=== PATIENT | female | born 1970 | race American Indian/Alaskan Native ===

== ENCOUNTER 2018-12-22 19:34 | Emergency (ER) | payer SELFPAY ==
--- NOTE | 2018-12-22 19:44 | Event Note ---
ED Screening Note Date of service: 12/22/18 Time: 19:42 ED Screening Note: 48 y o female presents with cc of right foot pain, hip pain and back pain x 2weeeks denies trauma or injury limpimg gait, right foot painm This initial assessment/diagnostic orders/clinical plan/treatment(s) is/are subject to change based on patients health status, clinical progression and re- assessment by fellow clinical providers in the ED. Further treatment and workup at subsequent clinical providers discretion. Patient/guardian urged not to elope from the ED as their condition may be serious if not clinically assessed and managed. Initial orders include: right foot xr ACC eval
--- NOTE | 2018-12-22 20:55 | XRay Report ---
RIGHT FOOT 3 VIEWS INDICATION / CLINICAL INFORMATION: Right foot pain and swelling starting last night. COMPARISON: None available. FINDINGS: BONES / JOINT(S): No acute fracture or subluxation. There is a small plantar calcaneal spur. SOFT TISSUES: No significant abnormality. ADDITIONAL FINDINGS: None. IMPRESSION: Small plantar calcaneal spur without other significant abnormality. Signer Name: Nilson Malik MD Signed: 12/22/2018 8:50 PM Workstation Name: [id number]
[2018-12-23] MEDS ORDERED: DELTASONE PO ONE (02:16)
[2018-12-23] MEDS ORDERED: TYLENOL #3 PO ONE (02:16)
[2018-12-23] MEDS ORDERED: IBUPROFEN PO ONE (02:16)
--- NOTE | 2018-12-23 02:31 | Emergency Department Report ---
ED Lower Extremity HPI - General Chief Complaint: Extremity Injury, Lower Stated Complaint: LEFT SIDE FOOT SWOLLEN, BLURRY VISION, LEG PAIN Time Seen by Provider: 12/22/18 19:42 Source: patient Mode of arrival: Ambulatory Limitations: No Limitations - History of Present Illness Initial Comments: pt is 48 y/ o AA female who presents with cc of right foot pain,pain x 2weeeks denies trauma or injury, pt hx include arthralgia, ankle fracture, DMII, HTN, states she is out of pain medication pt ambulated into ed [facility] Complaint: hip injury, other (acute on chronic foot and ankle pain ) Onset/Timin -: week(s), unknown (chronic for past 5 yrs) Injury: Foot: Right (right heel and foot pain /) Type of Injury: other ( denies acute injury ) Place: home Severity: moderate Severity scale (0 -10): 5 Improves With: NSAID Worsens With: weight bearing, movement, palpation Associated Symptoms: swelling, able to partially bear weight - Related Data Previous Rx's Medication Instructions Recorded Last Taken Type Ibuprofen [Motrin 800 MG tab] 800 mg PO Q8HR PRN #30 tablet 12/23/18 Unknown Rx Lisinopril [Zestril TAB] 20 mg PO QDAY #30 tablet 12/23/18 Unknown Rx Pen Needle, Diabetic [Insulin Pen 1 each MC TID #90 dis.needle 12/23/18 Unknown Rx Needle] glipiZIDE [Glucotrol] 5 mg PO QDAY #30 tablet 12/23/18 Unknown Rx metFORMIN [Glucophage] 500 mg PO BID #60 tablet 12/23/18 Unknown Rx predniSONE [Deltasone] 40 mg PO QDAY 5 Days #10 tab 12/23/18 Unknown Rx Allergies Allergy/AdvReac Type Severity Reaction Status Date / Time No Known Allergies Allergy Verified 12/22/18 19:38 ED Review of Systems ROS: Stated complaint: LEFT SIDE FOOT SWOLLEN, BLURRY VISION, LEG PAIN Other details as noted in HPI Constitutional: denies: chills, fever Eyes: denies: eye pain, eye discharge, vision change ENT: denies: ear pain, throat pain Respiratory: denies: cough, shortness of breath, wheezing Cardiovascular: denies: chest pain, palpitations Endocrine: no symptoms reported Gastrointestinal: denies: abdominal pain, nausea, diarrhea Genitourinary: denies: urgency, dysuria, discharge Musculoskeletal: as per HPI, arthralgia, myalgia, other (right foot pain ) Skin: denies: rash, lesions Neurological: denies: headache, weakness, paresthesias Psychiatric: denies: anxiety, depression Hematological/Lymphatic: denies: easy bleeding, easy bruising ED Past Medical Hx - Social History Smoking Status: Current Every Day Smoker Substance Use Type: None - Medications Home Medications: Home Medications Medication Instructions Recorded Confirmed Last Taken Type Ibuprofen [Motrin 800 MG tab] 800 mg PO Q8HR PRN #30 tablet 12/23/18 Unknown Rx Lisinopril [Zestril TAB] 20 mg PO QDAY #30 tablet 12/23/18 Unknown Rx Pen Needle, Diabetic [Insulin Pen 1 each MC TID #90 dis.needle 12/23/18 Unknown Rx Needle] glipiZIDE [Glucotrol] 5 mg PO QDAY #30 tablet 12/23/18 Unknown Rx metFORMIN [Glucophage] 500 mg PO BID #60 tablet 12/23/18 Unknown Rx predniSONE [Deltasone] 40 mg PO QDAY 5 Days #10 tab 12/23/18 Unknown Rx ED Physical Exam - General Limitations: No Limitations General appearance: alert, in no apparent distress - Head Head exam: Present: atraumatic, normocephalic - Eye Eye exam: Present: normal appearance, PERRL, EOMI Pupils: Present: normal accommodation - ENT ENT exam: Present: mucous membranes moist - Neck Neck exam: Present: normal inspection, full ROM. Absent: tenderness, lymphadenopathy, thyromegaly - Respiratory Respiratory exam: Present: normal lung sounds bilaterally. Absent: respiratory distress, wheezes, stridor, chest wall tenderness - Cardiovascular Cardiovascular Exam: Present: regular rate, normal rhythm, normal heart sounds. Absent: rubs, gallop - GI/Abdominal GI/Abdominal exam: Present: soft, normal bowel sounds. Absent: distended, tenderness, bruit, hernia - Rectal Rectal exam: Present: deferred - Extremities Exam Extremities exam: Present: full ROM, tenderness (heel tenderness to palpation), normal capillary refill, joint swelling. Absent: pedal edema, calf tenderness - Expanded Lower Extremity Exam Right Foot/Toe exam: Present: full ROM, tenderness, calcaneal tenderness. Absent: swelling, abrasion, laceration, ecchymosis, deformity, crepidus, dislocation, erythema, amputation, puncture wound, foreign body, tenderness at base of 5th metatarsal, nail avulsion, subungual hematoma Neuro vascular tendon exam: Present: no vascular compromise. Absent: pulse deficit, motor deficit, sensory deficit, tendon deficit Gait: Positive: observed and limited by pain - Back Exam Back exam: Present: normal inspection, full ROM. Absent: tenderness, CVA tenderness (R), CVA tenderness (L), rash noted - Neurological Exam Neurological exam: Present: alert, oriented X3, CN II-XII intact, normal gait, reflexes normal - Psychiatric Psychiatric exam: Present: normal affect, normal mood - Skin Skin exam: Present: warm. Absent: dry, intact, normal color ED Course Vital Signs 12/22/18 19:41 Temperature 98.1 F Pulse Rate 105 H Respiratory 18 Rate Blood Pressure 177/107 O2 Sat by Pulse 96 Oximetry ED Lower Extremity MDM - Radiology Data Radiology results: report reviewed, image reviewed Ordering Physician: CHERYL OSHEA Date of Service: 12/22/18 Procedure(s): XR foot 3+V RT Accession Number(s): [id number] cc: CHERYL OSHEA Fluoro Time In Minutes: RIGHT FOOT 3 VIEWS INDICATION / CLINICAL INFORMATION: Right foot pain and swelling starting last night. COMPARISON: None available. FINDINGS: BONES / JOINT(S): No acute fracture or subluxation. There is a small plantar calcaneal spur. SOFT TISSUES: No significant abnormality. ADDITIONAL FINDINGS: None. IMPRESSION: Small plantar calcaneal spur without other significant abnormality. Signer Name: Nilson Malik MD Signed: 12/22/2018 8:50 PM Workstation Name: [id number] Transcribed By: RT Dictated By: Nilson Malik MD Electronically Authenticated By: Nilson Malik MD Signed Date/Time: 12/22/182049 DD/ 48 TD/TT: - Medical Decision Making this chronic foot pain, noted small heel spur plan, ibuprofen, prednisone, post op shoe follow up with podiatry pt verbalized agreement and understanding of discharge plan. Critical care attestation.: If time is entered above; I have spent that time in minutes in the direct care of this critically ill patient, excluding procedure time. ED Disposition Clinical Impression: Chronic toe pain, right foot Heel spur Qualifiers: Laterality: right Qualified Code(s): M77.31 - Calcaneal spur, right foot Disposition: - TO HOME OR SELFCARE Is pt being admited?: No Does the pt Need Aspirin: No Condition: Stable Instructions: Arthralgia (ED), Plantar Fasciitis (ED) Prescriptions: predniSONE [Deltasone] 40 mg PO QDAY 5 Days #10 tab metFORMIN [Glucophage] 500 mg PO BID #60 tablet glipiZIDE [Glucotrol] 5 mg PO QDAY #30 tablet Pen Needle, Diabetic [Insulin Pen Needle] 1 each MC TID #90 dis.needle Ibuprofen [Motrin 800 MG tab] 800 mg PO Q8HR PRN #30 tablet PRN Reason: Pain , Severe (7-10) Lisinopril [Zestril TAB] 20 mg PO QDAY #30 tablet Referrals: [facility] [Outside] - 3-5 Days GUZMAN CONSTANTINO DPM [Staff Physician] - 3-5 Days Forms: Work/School Release Form(ED) Time of Disposition: 02:45
[2018-12-23] MEDS ORDERED: HCTZ PO ONE (03:31)
[2018-12-23] MEDS ORDERED: ZESTRIL PO ONE (03:31)
[2018-12-23] MEDS ORDERED: HCTZ ONE (03:31)
[2018-12-23] MEDS ORDERED: ZESTRIL ONE (03:31)
[2018-12-23 07:24] VITALS: BP 187/118
== END 2018-12-23 03:48 | disposition home or self-care (01) ==
LOC: ED 19:34
DX: M77.31 Calcaneal spur, right foot (principal); M79.674 Pain in right toe(s); G89.29 Other chronic pain; F17.200 Nicotine dependence, unspecified, uncomplicated; Z79.84 Long term (current) use of oral hypoglycemic drugs; Z79.899 Other long term (current) drug therapy
CPT/HCPCS: 73630; 93005; 93010; 99283; J7512

== ENCOUNTER 2020-01-15 13:13 | Emergency (ER) | payer SELFPAY ==
[2020-01-15] MEDS ORDERED: ASPIRIN 325 MG TAB PO ONE (13:24)
--- NOTE | 2020-01-15 13:45 | Emergency Department Report ---
ED General Adult HPI - General Chief complaint: Dyspnea/Respdistress Stated complaint: BP HIGH PUI?: No Time Seen by Provider: 01/15/20 13:30 Source: patient, RN notes reviewed, old records reviewed Mode of arrival: Ambulatory Limitations: No Limitations - History of Present Illness Initial comments: The patient was evaluated in the emergency department for symptoms described in the history of present illness. He/she was evaluated in the context of the global COVID-19 pandemic, which necessitated consideration that the patient might be at risk for infection with the virus that causes COVID-19. Institutional protocols and algorithms that pertain to the evaluation of patients at risk for COVID-19 are in a state of rapid change based on information released by regulatory bodies including the CDC and federal and state organizations. These policies and algorithms were followed during the patient's care in the emergency department. Please note that these policies, procedures and recommendations changed on a rapid basis. Patient is a 49-year-old female. She is not known to myself previously. She states that she is not . 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 She has not taken prescription medication for 8 or 9 months. She reportedly has a history of TIA. She is noncompliant with outpatient medications. She is sent to the emergency room by a local free clinic. The patient complains of multiple things, including bilateral nontraumatic plantar foot pain, bilateral nontraumatic ankle swelling, left arm, left leg numbness, for 2 to 3 days, slurred speech for 2 to 3 days, "tight" pain, "all over", and shortness of breath which is painless. Patient also complains of headache, which is frontal and bitemporal, not sudden or thunderclap in nature, not maximal in intensity, not the worst headache of her life, without binocular blurry vision or loss of vision. -: Gradual, days(s) Location: left, lower extremity Radiation: extremity Quality: aching Consistency: intermittent Improves with: rest Worsens with: movement - Related Data Previous Rx's Medication Instructions Recorded Last Taken Type Ibuprofen [Motrin 800 MG tab] 800 mg PO Q8HR PRN #30 tablet 12/23/18 Unknown Rx Pen Needle, Diabetic [Insulin Pen 1 each MC TID #90 dis.needle 12/23/18 Unknown Rx Needle] predniSONE [Deltasone] 40 mg PO QDAY 5 Days #10 tab 12/23/18 Unknown Rx Aspirin EC [Ecotrin] 81 mg PO QDAY #100 tablet. 01/15/20 Unknown Rx AtorvaSTATin [Lipitor] 20 mg PO QHS #30 tab 01/15/20 Unknown Rx Clopidogrel [Plavix] 75 mg PO QDAY #30 tablet 01/15/20 Unknown Rx Gabapentin 100 mg PO Q8HR #90 capsule 01/15/20 Unknown Rx amLODIPine 10 mg PO DAILY #30 tab 01/15/20 Unknown Rx glipiZIDE [Glucotrol] 5 mg PO BID #30 tablet 01/15/20 Unknown Rx lisinopriL [Zestril TAB] 40 mg PO QDAY #30 tablet 01/15/20 Unknown Rx metFORMIN [Glucophage] 500 mg PO BID #60 tablet 01/15/20 Unknown Rx Allergies Allergy/AdvReac Type Severity Reaction Status Date / Time No Known Allergies Allergy Verified 12/22/18 19:38 ED Review of Systems ROS: Stated complaint: BP HIGH Other details as noted in HPI Constitutional: fever Eyes: denies: eye discharge, vision change ENT: denies: hearing loss Respiratory: shortness of breath. denies: cough Cardiovascular: edema. denies: chest pain Gastrointestinal: denies: abdominal pain Genitourinary: denies: dysuria Musculoskeletal: arthralgia, myalgia Neurological: headache, weakness, numbness, paresthesias Hematological/Lymphatic: denies: easy bleeding ED Past Medical Hx - Past Medical History Previous Medical History?: Yes Hx Hypertension: Yes Hx CVA: Yes (TIA) Hx Diabetes: Yes Additional medical history: SOB, chest pain - Surgical History Past Surgical History?: Yes Additional Surgical History: left foot - Social History Smoking Status: Current Every Day Smoker Substance Use Type: Alcohol - Medications Home Medications: Home Medications Medication Instructions Recorded Confirmed Last Taken Type Ibuprofen [Motrin 800 MG tab] 800 mg PO Q8HR PRN #30 tablet 12/23/18 Unknown Rx Pen Needle, Diabetic [Insulin Pen 1 each MC TID #90 dis.needle 12/23/18 Unknown Rx Needle] predniSONE [Deltasone] 40 mg PO QDAY 5 Days #10 tab 12/23/18 Unknown Rx Aspirin EC [Ecotrin] 81 mg PO QDAY #100 tablet. 01/15/20 Unknown Rx AtorvaSTATin [Lipitor] 20 mg PO QHS #30 tab 01/15/20 Unknown Rx Clopidogrel [Plavix] 75 mg PO QDAY #30 tablet 01/15/20 Unknown Rx Gabapentin 100 mg PO Q8HR #90 capsule 01/15/20 Unknown Rx amLODIPine 10 mg PO DAILY #30 tab 01/15/20 Unknown Rx glipiZIDE [Glucotrol] 5 mg PO BID #30 tablet 01/15/20 Unknown Rx lisinopriL [Zestril TAB] 40 mg PO QDAY #30 tablet 01/15/20 Unknown Rx metFORMIN [Glucophage] 500 mg PO BID #60 tablet 01/15/20 Unknown Rx ED Physical Exam - General Limitations: No Limitations General appearance: alert, in no apparent distress, obese - Head Head exam: Present: atraumatic, normocephalic - Eye Eye exam: Present: normal appearance, EOMI. Absent: nystagmus - ENT ENT exam: Present: normal exam, normal orophraynx, mucous membranes moist, n ormal external ear exam - Neck Neck exam: Present: normal inspection, full ROM. Absent: tenderness, meningismus - Respiratory Respiratory exam: Present: normal lung sounds bilaterally. Absent: respiratory distress, wheezes, rales, rhonchi, stridor, decreased breath sounds - Cardiovascular Cardiovascular Exam: Present: regular rate, normal rhythm, normal heart sounds. Absent: bradycardia, tachycardia, irregular rhythm, systolic murmur, diastolic murmur, rubs, gallop - GI/Abdominal GI/Abdominal exam: Present: soft. Absent: distended, tenderness, guarding, rebound, rigid, pulsatile mass - Extremities Exam Extremities exam: Present: normal inspection, full ROM, pedal edema (1+ edema noted on the bilateral feet. The bilateral ankles are nontender. There is bilateral plantar foot tenderness.), other (2+ pulses noted in the bilateral upper and lower extremities. There is no palpable cord. negative Homans sign. Muscular compartments are soft. The pelvis is stable.). Absent: calf tendern ess - Back Exam Back exam: Present: normal inspection, full ROM. Absent: tenderness, CVA tenderness (R), CVA tenderness (L), paraspinal tenderness, vertebral tenderness - Neurological Exam Neurological exam: Present: alert, oriented X3, other (No facial droop. Tongue midline. Extraocular movements intact bilaterally. Facial sensation intact to light touch in V1, V2, V3 distribution bilaterally. 5 and a 5 strength in 4 extremities. Sensation intact to light touch in 4 extremities.) - Psychiatric Psychiatric exam: Present: normal affect, normal mood, anxious - Skin Skin exam: Present: warm, dry, intact, normal color. Absent: rash ED Course Vital Signs 01/15/20 01/15/20 01/15/20 13:22 13:34 13:45 Temperature 98.2 F Pulse Rate 88 Respiratory 14 Rate Blood Pressure 196/115 164/105 O2 Sat by Pulse 93 95 98 Oximetry 01/15/20 01/15/20 01/15/20 14:01 14:16 14:31 Temperature Pulse Rate 94 H 93 H Respiratory 18 20 15 Rate Blood Pressure 167/94 167/94 167/94 O2 Sat by Pulse 93 98 95 Oximetry 01/15/20 01/15/20 01/15/20 14:45 15:01 15:15 Temperature Pulse Rate 93 H Respiratory 22 36 H 25 H Rate Blood Pressure 167/94 175/84 175/84 O2 Sat by Pulse 97 91 92 Oximetry 01/15/20 01/15/20 01/15/20 15:30 15:45 16:01 Temperature Pulse Rate Respiratory 12 21 20 Rate Blood Pressure 175/84 196/101 196/101 O2 Sat by Pulse 99 85 99 Oximetry 01/15/20 01/15/20 01/15/20 16:15 16:31 16:45 Temperature Pulse Rate Respiratory 24 23 16 Rate Blood Pressure 175/84 173/88 173/88 O2 Sat by Pulse 97 92 92 Oximetry 01/15/20 01/15/20 01/15/20 17:00 17:01 17:15 Temperature Pulse Rate 85 Respiratory 18 17 Rate Blood Pressure 173/88 192/113 205/122 O2 Sat by Pulse 85 89 Oximetry 01/15/20 01/15/20 01/15/20 17:53 18:01 18:31 Temperature Pulse Rate Respiratory Rate Blood Pressure 190/101 174/96 139/85 O2 Sat by Pulse Oximetry - Reevaluation(s) Reevaluation #1: 01/15/20 13:44 Differential diagnosis, including but not limited to: Peripheral neuropathy, hyperglycemia, pneumonia, congestive heart failure, renal insufficiency, hepatic insufficiency, plantar fasciitis, subacute stroke Assessment and plan: 49-year-old female, with multiple medical comorbidities, noncompliant with medications, who has a GCS of 15, with NIH score of 1, very mildly dysarthric on my examination, neurologic symptoms present for greater than 48 hours, therefore, not a TPA candidate, examination not suggestive or consistent of/with a large vessel occlusion, symptoms present for greater than 24 hours, therefore, there is no utility in obtaining emergency CT angiogram of the head and neck. We will obtain basic laboratory studies, x-ray of the chest, noncontrast CT scan of the brain, and as per this institutions policy, protocol procedures, have th e patient evaluated by stroke neurology. We anticipate admission for medical optimization, and evaluation for presumed subacute stroke. I discussed this plan of care with the patient, who verbalized understanding, and who is amenable to this plan of care. 01/15/20 13:46 In terms of the patient's chronic musculoskeletal issues, which have been documented to have been present since December 2018, examination not consistent with fracture, dislocation, DVT, cellulitis or myositis, plantar fasciitis is a chronic condition which is not emergent, ankle arthritis is not emergent, weightbearing as tolerated, rest, ice, compression, elevation, physical therapy, and aggressive weight loss. Reevaluation #2: 01/15/20 15:28 CT scan interpretation of the brain I do not appreciate any bleeding. Case is presented to hospital physician, Dr. Cameron Miranda , who agrees to assume care of the patient ED Medical Decision Making - Lab Data Result diagrams: 01/15/20 13:38 01/15/20 13:38 Lab Results 01/15/20 01/15/20 01/15/20 Range/Units 13:38 13:38 13:42 WBC 8.1 (4.5-11.0) K/mm3 RBC 4.52 (3.65-5.03) M/mm3 Hgb 14.8 H (10.1-14.3) gm/dl Hct 43.7 H (30.3-42.9) % MCV 97 (79-97) fl MCH 33 H (28-32) pg MCHC 34 (30-34) % RDW 13.3 (13.2-15.2) % Plt Count 283 (140-440) K/mm3 Lymph % (Auto) 42.9 H (13.4-35.0) % Trigg % (Auto) 9.3 H (0.0-7.3) % Eos % (Auto) 2.6 (0.0-4.3) % Baso % (Auto) 0.4 (0.0-1.8) % Lymph # (Auto) 3.5 (1.2-5.4) K/mm3 Trigg # (Auto) 0.8 (0.0-0.8) K/mm3 Eos # (Auto) 0.2 (0.0-0.4) K/mm3 Baso # (Auto) 0.0 (0.0-0.1) K/mm3 Seg Neutrophils % 44.8 (40.0-70.0) % Seg Neutrophils # 3.6 (1.8-7.7) K/mm3 PT 13.0 (12.2-14.9) Sec. INR 0.97 (0.87-1.13) Sodium 137 (137-145) mmol/L Potassium 3.8 (3.6-5.0) mmol/L Chloride 95.1 L (98-107) mmol/L Carbon Dioxide 25 (22-30) mmol/L Anion Gap 21 mmol/L BUN 14 (7-17) mg/dL Creatinine 1.0 (0.6-1.2) mg/dL Estimated GFR 59 ml/min BUN/Creatinine Ratio 14 % Glucose 249 H (65-100) mg/dL Calcium 10.1 (8.4-10.2) mg/dL Magnesium (1.7-2.3) mg/dL Total Bilirubin (0.1-1.2) mg/dL Direct Bilirubin (0-0.2) mg/dL Indirect Bilirubin mg/dL AST (5-40) units/L ALT (7-56) units/L Alkaline Phosphatase (35-129) units/L Total Creatine Kinase (30-135) units/L Troponin T < 0.010 (0.00-0.029) ng/mL Total Protein (6.3-8.2) g/dL Albumin (3.9-5) g/dL Albumin/Globulin Ratio % TSH (0.270-4.200) mlU/mL HCG, Quant (0-4) mIU/mL 01/15/20 01/15/20 01/15/20 Range/Units 13:42 13:42 13:42 WBC (4.5-11.0) K/mm3 RBC (3.65-5.03) M/mm3 Hgb (10.1-14.3) gm/dl Hct (30.3-42.9) % MCV (79-97) fl MCH (28-32) pg MCHC (30-34) % RDW (13.2-15.2) % Plt Count (140-440) K/mm3 Lymph % (Auto) (13.4-35.0) % Trigg % (Auto) (0.0-7.3) % Eos % (Auto) (0.0-4.3) % Baso % (Auto) (0.0-1.8) % Lymph # (Auto) (1.2-5.4) K/mm3 Trigg # (Auto) (0.0-0.8) K/mm3 Eos # (Auto) (0.0-0.4) K/mm3 Baso # (Auto) (0.0-0.1) K/mm3 Seg Neutrophils % (40.0-70.0) % Seg Neutrophils # (1.8-7.7) K/mm3 PT (12.2-14.9) Sec. INR (0.87-1.13) Sodium (137-145) mmol/L Potassium (3.6-5.0) mmol/L Chloride (98-107) mmol/L Carbon Dioxide (22-30) mmol/L Anion Gap mmol/L BUN (7-17) mg/dL Creatinine (0.6-1.2) mg/dL Estimated GFR ml/min BUN/Creatinine Ratio % Glucose (65-100) mg/dL Calcium (8.4-10.2) mg/dL Magnesium 1.90 (1.7-2.3) mg/dL Total Bilirubin 0.20 (0.1-1.2) mg/dL Direct Bilirubin < 0.2 (0-0.2) mg/dL Indirect Bilirubin 0.0 mg/dL AST 17 (5-40) units/L ALT 22 (7-56) units/L Alkaline Phosphatase 73 (35-129) units/L Total Creatine Kinase 92 (30-135) units/L Troponin T (0.00-0.029) ng/mL Total Protein 7.3 (6.3-8.2) g/dL Albumin 3.9 (3.9-5) g/dL Albumin/Globulin Ratio 1.1 % TSH (0.270-4.200) mlU/mL HCG, Quant 1.32 (0-4) mIU/mL 01/15/20 Range/Units 13:42 WBC (4.5-11.0) K/mm3 RBC (3.65-5.03) M/mm3 Hgb (10.1-14.3) gm/dl Hct (30.3-42.9) % MCV (79-97) fl MCH (28-32) pg MCHC (30-34) % RDW (13.2-15.2) % Plt Count (140-440) K/mm3 Lymph % (Auto) (13.4-35.0) % Trigg % (Auto) (0.0-7.3) % Eos % (Auto) (0.0-4.3) % Baso % (Auto) (0.0-1.8) % Lymph # (Auto) (1.2-5.4) K/mm3 Trigg # (Auto) (0.0-0.8) K/mm3 Eos # (Auto) (0.0-0.4) K/mm3 Baso # (Auto) (0.0-0.1) K/mm3 Seg Neutrophils % (40.0-70.0) % Seg Neutrophils # (1.8-7.7) K/mm3 PT (12.2-14.9) Sec. INR (0.87-1.13) Sodium (137-145) mmol/L Potassium (3.6-5.0) mmol/L Chloride (98-107) mmol/L Carbon Dioxide (22-30) mmol/L Anion Gap mmol/L BUN (7-17) mg/dL Creatinine (0.6-1.2) mg/dL Estimated GFR ml/min BUN/Creatinine Ratio % Glucose (65-100) mg/dL Calcium (8.4-10.2) mg/dL Magnesium (1.7-2.3) mg/dL Total Bilirubin (0.1-1.2) mg/dL Direct Bilirubin (0-0.2) mg/dL Indirect Bilirubin mg/dL AST (5-40) units/L ALT (7-56) units/L Alkaline Phosphatase (35-129) units/L Total Creatine Kinase (30-135) units/L Troponin T (0.00-0.029) ng/mL Total Protein (6.3-8.2) g/dL Albumin (3.9-5) g/dL Albumin/Globulin Ratio % TSH 2.330 (0.270-4.200) mlU/mL HCG, Quant (0-4) mIU/mL - EKG Data -: EKG Interpreted by Me EKG shows normal: sinus rhythm Rate: normal - EKG Data 01/15/20 13:45 Sinus rhythm, 83 bpm, normal axis, QTC is prolonged, high left ventricular voltage and motion artifact. This EKG is abnormal. The EKG is not a STEMI. - Radiology Data Radiology results: pending, report reviewed, image reviewed Critical care attestation.: If time is entered above; I have spent that time in minutes in the direct care of this critically ill patient, excluding procedure time. ED Disposition Clinical Impression: Slurred speech, Left sided numbness, Hyperglycemia, Foot pain, Obesity, Noncompliance Disposition: OP ADMIT IP TO THIS HOSP Is pt being admited?: Yes Condition: Good Prescriptions: AtorvaSTATin [Lipitor] 20 mg PO QHS #30 tab amLODIPine 10 mg PO DAILY #30 tab Aspirin EC [Ecotrin] 81 mg PO QDAY #100 tablet. Gabapentin 100 mg PO Q8HR #90 capsule metFORMIN [Glucophage] 500 mg PO BID #60 tablet glipiZIDE [Glucotrol] 5 mg PO BID #30 tablet Clopidogrel [Plavix] 75 mg PO QDAY #30 tablet lisinopriL [Zestril TAB] 40 mg PO QDAY #30 tablet Referrals: PRIMARY CARE, [Primary Care Provider] - 3-5 Days GENIA MIRANDA MD [Staff Physician] - 3-5 Days - Assessment Assessment Interval: Baseline - Level of Consciousness 1a. Level of Consciousness: alert/keenly responsive - LOC Questions 1b. LOC Questions: answers both correctly - LOC Command 1c. LOC Commands: performs tasks correctly - Best Gaze 2. Best Gaze: normal - Visual 3. Visual: no visual loss - Facial Palsy 4. Facial Palsy: normal symmetrical movement - Motor Arm 5a. Motor Arm Left: no drift 5b. Motor Arm Right: no drift - Motor Leg 6a. Motor Leg Left: no drift 6b. Motor Leg Right: no drift - Limb Ataxia 7. Limb Ataxia: absent - Sensory 8. Sensory: normal - Best Language 9. Best Language: no aphasia - Dysarthria 10. Dysarthria: mild/moderate dysarthria - Extinction and Inattention 11. Extinction/Inattention: no abnormality - Scoring Total Score: 1 Stroke Severity: Minor Stroke
[2020-01-15 13:57] LABS: Basophils % (Auto) 0.4 % (0.0-1.8); Eosinophils # (Auto) 0.2 K/mm3 (0.0-0.4); Eosinophils % (Auto) 2.6 % (0.0-4.3); Hematocrit 43.7 % (30.3-42.9); Hemoglobin 14.8 gm/dl (10.1-14.3); Lymphocytes # (Auto) 3.5 K/mm3 (1.2-5.4); Lymphocytes % (Auto) 42.9 % (13.4-35.0); Mean Corpuscular HGB Conc 34 % (30-34); Mean Corpuscular Volume 97 fl (79-97); Monocytes # (Auto) 0.8 K/mm3 (0.0-0.8); Monocytes % (Auto) 9.3 % (0.0-7.3); Platelet Count 283 K/mm3 (140-440); Red Blood Count 4.52 M/mm3 (3.65-5.03); Red Cell Distribution Width 13.3 % (13.2-15.2)
[2020-01-15 14:08] LABS: Alanine Aminotransferase 22 units/L (7-56); Albumin 3.9 g/dL (3.9-5)
[2020-01-15 14:09] LABS: Bilirubin,Direct < 0.2 mg/dL (0-0.2)
[2020-01-15 14:10] LABS: INR 0.97 (0.87-1.13)
[2020-01-15 14:11] LABS: BUN/Creatinine Ratio 14; Blood Urea Nitrogen 14 mg/dL (7-17); Calcium 10.1 mg/dL (8.4-10.2); Hemolysis Index 10
--- NOTE | 2020-01-15 14:44 | Consultation ---
History of Present Illness History of present illness: [facility] Tele[facility]rology Consult Services Stat Consult Date of Service: 01/15/2020 13:40:05 Impression: Rule Out Acute Ischemic Stroke Comments/Sign-Out: Patient presented with slurred speech and numbness. Patient had symptoms for unknown period of time close to 2 weeks. Agree with inpatient evaluation of BP, Glucose and stroke rule out. Metrics: [employer] Notification Time: 01/15/2020 13:38:48 Stamp Time: 01/15/2020 13:40:05 Callback Response Time: 01/15/2020 13:40:00 Video Start Time: 01/15/2020 14:30:25 Video End Time: 01/15/2020 14:41:58 Our recommendations are outlined below. Recommendations: Initiate Aspirin 325 MG Daily Imaging Studies: MRI Head Without Contrast MRA Head and Neck Without Contrast When Available - Stroke Protocol Echocardiogram - Transthoracic Echocardiogram Therapies: Physical Therapy, Occupational Therapy, Speech Therapy Assessment When Applicable Other WorkUp: Infectious/metabolic workup per primary team Disposition: Neurology Follow Up Recommended Sign Out: Discussed with Emergency Department Provider Chief Complaint: Left sided numbness. History of Present Illness: Patient is a 49 year old Male. Past medical History of Hypertension, Diabetes mellitus, Bipolar Medicine presented with left sided numbness for the past couple of weeks. [facility] found [facility] BP 202/104 and BG 304. Toes were swollen and ankle swollen and tender and slurred speech and was recommended to come to the hospital Past Medical History: Hypertension Diabetes Mellitus Examination: BP(167/94), Pulse(89), Blood Glucose(249) 1A: Level of Consciousness - Alert; keenly responsive + 0 1B: Ask Month and Age - 1 Question Right + 1 1C: Blink Eyes & Squeeze Hands - Performs Both Tasks + 0 2: Test Horizontal Extraocular Movements - Normal + 0 3: Test Visual Johnson - No Visual Loss + 0 4: Test Facial Palsy (Use Grimace if Obtunded) - Normal symmetry + 0 5A: Test Left Arm Motor Drift - No Drift for 10 Seconds + 0 5B: Test Right Arm Motor Drift - No Drift for 10 Seconds + 0 6A: Test Left Leg Motor Drift - No Effort Against Seymour + 3 6B: Test Right Leg Motor Drift - No Effort Against Seymour + 3 7: Test Limb Ataxia (FNF/Heel-Brar) - No Ataxia + 0 8: Test Sensation - Mild-Moderate Loss: Less Sharp/More Dull + 1 9: Test Language/Aphasia - Mild-Moderate Aphasia: Some Obvious Changes, Without Significant Limitation + 1 10: Test Dysarthria - Mild-Moderate Dysarthria: Slurring but can be understood + 1 11: Test Extinction/Inattention - No abnormality + 0 NIHSS Score: 10 Patient/Family was informed the Neurology Consult would happen via TeleHealth consult by way of interactive audio and video telecommunications and consented to receiving care in this manner. Dr Ramesh Moise[facility] [employer] Case [id number] Medications and Allergies Allergies Allergy/AdvReac Type Severity Reaction Status Date / Time No Known Allergies Allergy Verified 12/22/18 19:38 Home Medications Medication Instructions Recorded Confirmed Last Taken Type Ibuprofen [Motrin 800 MG tab] 800 mg PO Q8HR PRN #30 tablet 12/23/18 Unknown Rx Pen Needle, Diabetic [Insulin Pen 1 each MC TID #90 dis.needle 12/23/18 Unknown Rx Needle] glipiZIDE [Glucotrol] 5 mg PO QDAY #30 tablet 12/23/18 Unknown Rx lisinopriL [Zestril TAB] 20 mg PO QDAY #30 tablet 12/23/18 Unknown Rx metFORMIN [Glucophage] 500 mg PO BID #60 tablet 12/23/18 Unknown Rx predniSONE [Deltasone] 40 mg PO QDAY 5 Days #10 tab 12/23/18 Unknown Rx Results - Laboratory Findings CBC and BMP: 01/15/20 13:38 01/15/20 13:38 Abnormal Lab Findings: Abnormal Labs 01/15/20 01/15/20 13:38 13:38 Hgb 14.8 H Hct 43.7 H MCH 33 H Lymph % (Auto) 42.9 H Pershing % (Auto) 9.3 H Chloride 95.1 L Glucose 249 H
[2020-01-15] MEDS ORDERED: ASPIRIN 325 MG TAB ONE (14:53)
[2020-01-15] MEDS ORDERED: ACETAMINOPHEN 325 MG TAB PO ONE (14:53)
--- NOTE | 2020-01-15 14:59 | XRay Report ---
CHEST 1 VIEW INDICATION / CLINICAL INFORMATION: Chest Pain. COMPARISON: None available. FINDINGS: SUPPORT DEVICES: None. HEART / MEDIASTINUM: Enlarged cardiac silhouette. LUNGS / PLEURA: No significant pulmonary or pleural abnormality. No pneumothorax. ADDITIONAL FINDINGS: No significant additional findings. IMPRESSION: 1. No acute findings. Signer Name: Pollo Issa MD Signed: 01/15/2020 2:54 PM Workstation Name: [id number]
[2020-01-15] MEDS ORDERED: INSULIN REGULAR, HUMAN 100 UNIT/ML 3ML VIAL SUB-Q ONE (15:08)
[2020-01-15] MEDS ORDERED: ASPIRIN 81 MG TAB CHEW PO ONE (15:28)
--- NOTE | 2020-01-15 15:57 | Cat Scan Report ---
CT head/brain wo con INDICATION / CLINICAL INFORMATION: 49 years Female; slurred speech, left sided numbness. TECHNIQUE: Routine CT head without contrast. All CT scans at this location are performed using CT dos e reduction for ALARA by means of automated exposure control. COMPARISON: None. FINDINGS: BRAIN / INTRACRANIAL CONTENTS: No acute hemorrhage, mass effect, midline shift, hydrocephalus, or acu te, large territorial infarct. No chronic infarct or atrophy appreciated. No significant white matter abnormality. CRANIOCERVICAL JUNCTION: No significant abnormality. ORBITS: No significant abnormality of visualized orbits. SINUSES / MASTOIDS: Minimal mucosal thickening seen in the ethmoids. ADDITIONAL FINDINGS: Significant periodontal disease is seen along the medial root of the first molar along the right maxillary alveolar ridge. There may be a small radiopaque foreign body the subcutaneous soft tissues superficial left temporal region. Please clinically correlate. This finding measures approximately 3 mm in maximum dimension. IMPRESSION: 1. No focal mass, hemorrhage, hydrocephalus, or acute, large territorial infarct. Signer Name: Ilan Hall MD, III Signed: 01/15/2020 3:53 PM Workstation Name: [id number]
--- NOTE | 2020-01-15 15:58 | Event Note ---
Date: 01/15/20
[2020-01-15] MEDS ORDERED: INSULIN REGULAR, HUMAN 100 UNITS/1 ML ONE (16:30)
[2020-01-15] MEDS ORDERED: HYDROcodone/ACETAMINOPHEN 7.5-325MG TAB PO ONE (16:39)
[2020-01-15] MEDS ORDERED: cloNIDine 0.2 MG TAB PO ONE (16:44)
--- NOTE | 2020-01-15 16:47 | Event Note ---
Date: 01/15/20 Patient came to the emergency room for high blood pressure and high glucose levels and numbness in both the legs. During history taking patient also complained of left-sided numbness with slurred speech. During my examination there was no slurred speech. There is no decreased sensation. Patient has decreased sensation both the feet. Especially touch and vibration sense. Labs reviewed glucose levels around 200-2 50. Otherwise labs are normal. CT head was normal. Discharge diagnoses #1 uncontrolled hypertension #2 uncontrolled diabetes #3 peripheral neuropathy #4 possible TIA but unlikely. Patient counseled about her excessive weight of 260 pounds. Patient needs to lose at least 100 pounds slowly over the next couple of years or see a bariatric surgeon. Patient also discharged on increase lisinopril to 40 mg from 20 mg. Amlodipine 10 mg p.o. daily was added. Glipizide was increased from 5 mg daily to 5 mg twice a day. Metformin continue at 500 mg twice daily. Atorvastatin 20 mg p.o. daily was added. Plavix 75 mg p.o. daily was added for prevention of TIAs and stroke. Ecotrin 81 mg p.o. daily ordered for prevention of strokes. Patient counseled about weight And aware and calorie management. Patient was eating junk food when I was examining her. Patient was counseled about eating unnecessary food.
[2020-01-15 20:53] VITALS: BP 139/85
== END 2020-01-15 18:40 | disposition admitted as inpatient to this hospital (09) ==
LOC: ED 13:13
DX: E66.9 Obesity, unspecified (principal); R47.81 Slurred speech; R20.0 Anesthesia of skin; E11.65 Type 2 diabetes mellitus with hyperglycemia; M25.572 Pain in left ankle and joints of left foot; I10 Essential (primary) hypertension; F17.200 Nicotine dependence, unspecified, uncomplicated; Z91.19 Patient's noncompliance with other medical treatment and regimen; Z98.890 Other specified postprocedural states; Z79.899 Other long term (current) drug therapy; Z68.38 Body mass index [BMI] 38.0-38.9, adult; Z86.73 Personal history of transient ischemic attack (TIA), and cerebral infarction without residual deficits
CPT/HCPCS: 36415; 70450; 71045; 80048; 80076; 82550; 82962; 83735; 84443; 84484; 84702; 85025; 85610; 93005; 96372; J1815

== ENCOUNTER 2021-01-28 10:05 | Observation (INO) | payer SELFPAY ==
--- NOTE | 2021-01-28 10:39 | Event Note ---
ED Screening Note Date of service: 01/28/21 Time: 10:37 ED Screening Note: 50-year-old female patient with a history of multiple TIA's, diabetes, and hypertension presents to the emergency department with complaints of chest pain, left upper extremity weakness, and numbness in both feet starting yesterday morning. Onset was >24 hours earlier. Symptoms worsened while she was at the store this morning, prompting her to call EMS. Patient has been out of all of her medications for approximately 4 months. Hypertensive in triage. BP 245/126. General: Awake, appropriately interactive, no acute distress. Neck: Supple. Full range of motion intact. Cardiovascular: Normal peripheral perfusion. Pulmonary: No respiratory distress. Patient is speaking normally without use of accessory muscles. Skin: No apparent rashes or lesions. Neurological: No facial asymmetry. Follows commands. Patient is alert and oriented. Musculoskeletal: Moves all four extremities spontaneously with normal range of motion. Psych: Cooperative. Appropriate mood and affect. Stroke alert protocol not initiated due to delayed presentation. CT head ordered. cardiac monitor and peripheral IV access requested. EKG, labs, chest x-ray ordered. Charge nurse aware of need for monitored room in Main ED. I have greeted and performed a focused rapid initial assessment of this patient. A comprehensive ED assessment and evaluation of the patient, analysis of all test results, and completion of the medical decision-making process will be conducted by additional ED providers. This initial assessment/diagnostic orders/clinical plan/treatment(s) is/are subject to change based on patients health status, clinical progression and re-assessment. Further treatment and workup at subsequent clinical provider's discretion. Patient/guardian urged not to elope from the ED as their condition may be serious if not clinically assessed and managed.
--- NOTE | 2021-01-28 11:19 | XRay Report ---
CHEST 2 VIEWS INDICATION / CLINICAL INFORMATION: chest pain. COMPARISON: 01/15/2020 FINDINGS: SUPPORT DEVICES: None. HEART / MEDIASTINUM: Mild stable cardiomegaly. LUNGS / PLEURA: No significant pulmonary or pleural abnormality. No pneumothorax. No interstitial pul monary edema. ADDITIONAL FINDINGS: No significant additional findings. IMPRESSION: 1. No acute findings. No interval change. Signer Name: Kendra Redding MD Signed: 01/28/2021 11:15 AM Workstation Name: [email or web address]
[2021-01-28] MEDS ORDERED: ASPIRIN 325 MG TAB PO ONE (11:25)
[2021-01-28 11:32] LABS: Basophils # (Auto) 0.1 K/mm3 (0.0-0.1); Basophils % (Auto) 1.7 % (0.0-1.8); Eosinophils # (Auto) 0.3 K/mm3 (0.0-0.4); Eosinophils % (Auto) 3.3 % (0.0-4.3); Hematocrit 42.3 % (30.3-42.9); Hemoglobin 14.3 gm/dl (10.1-14.3); Lymphocytes # (Auto) 3.2 K/mm3 (1.2-5.4); Lymphocytes % (Auto) 42.1 % (13.4-35.0); Mean Corpuscular HGB Conc 34 % (30-34); Mean Corpuscular Volume 96 fl (79-97); Monocytes # (Auto) 0.7 K/mm3 (0.0-0.8); Monocytes % (Auto) 9.7 % (0.0-7.3); Platelet Count 270 K/mm3 (140-440); Red Blood Count 4.39 M/mm3 (3.65-5.03); Red Cell Distribution Width 13.7 % (13.2-15.2)
[2021-01-28 11:43] LABS: INR 0.97 (0.87-1.13)
[2021-01-28 11:44] LABS: Partial Thromboplastin Time 24.8 Sec. (24.2-36.6)
[2021-01-28 11:57] LABS: Alanine Aminotransferase 21 units/L (7-56); BUN/Creatinine Ratio 17; Blood Urea Nitrogen 17 mg/dL (7-17); Hemolysis Index 21
--- NOTE | 2021-01-28 12:16 | Cat Scan Report ---
CT head/brain wo con INDICATION / CLINICAL INFORMATION: slurred speech, weakness, numbness, hx tia. TECHNIQUE: Axial CT imaging of the brain was obtained without contrast. Coronal and sagittal reformatted imaging obtained and reviewed. All CT scans at this location are performed using CT dose reduction for ALAR A by means of automated exposure control. COMPARISON: Prior head CT 01/15/2020 FINDINGS: No intracranial hemorrhage, mass, or midline shift is noted. No extra-axial fluid collection or sugge stion of acute territorial infarction. The ventricular system and basilar cisterns are unremarkable. No evidence for focal area of acute ischemia at this time given the patient's history of stroke sympt oms. Visualized paranasal sinuses and mastoid air cells are grossly well aerated and clear. No calvarial a bnormality. As noted on the prior study, there is a small radiopaque foreign object in the superficial subcutaneo us tissue overlying the left temporal region. This is unchanged from prior exam. IMPRESSION: 1. No acute intracranial abnormality. No significant interval change compared with prior head CT of . Signer Name: Kendra Redding MD Signed: 01/28/2021 12:11 PM Workstation Name: [id number]
--- NOTE | 2021-01-28 12:53 | Emergency Department Report ---
ED Chest Pain HPI - General Chief Complaint: Chest Pain Stated Complaint: CHEST PAIN Time Seen by Provider: 01/28/21 10:33 Source: patient, EMS Mode of arrival: Stretcher Limitations: No Limitations - History of Present Illness Initial Comments: 50-year-old female, history of hypertension, diabetes, bipolar disorder, CVA, presents to ED with chest pain. Patient states she was having chest pain while walking to the store. States pain is left-sided, nonradiating, feels like tightness. She denies any associated shortness of breath, nausea or vomiting, diaphoresis. Patient reports she has been out of all of her medication for several months. Patient is hypertensive at this time. She currently denies any headache, dizziness, or any new neurological deficits. 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 MD Complaint: chest pain -: This morning Onset: during exertion Pain Location: left chest Pain Radiation: none Severity: moderate Severity scale (0 -10): 0 Quality: tightness Consistency: constant Improves With: rest Worsens With: exertion re: denies: nausea, vomting, diaphoresis, dyspnea Other Symptoms: denies: cough, fever, syncope, leg swelling Treatments Prior to Arrival: none - Related Data Previous Rx's Medication Instructions Recorded Last Taken Type Ibuprofen [Motrin 800 MG tab] 800 mg PO Q8HR PRN #30 tablet 12/23/18 Unknown Rx Pen Needle, Diabetic [Insulin Pen 1 each MC TID #90 dis.needle 12/23/18 Unknown Rx Needle] predniSONE [Deltasone] 40 mg PO QDAY 5 Days #10 tab 12/23/18 Unknown Rx Aspirin EC [Ecotrin] 81 mg PO QDAY #100 tablet.dr 01/15/20 Unknown Rx AtorvaSTATin [Lipitor] 20 mg PO QHS #30 tab 01/15/20 Unknown Rx Clopidogrel [Plavix] 75 mg PO QDAY #30 tablet 01/15/20 Unknown Rx Gabapentin 100 mg PO Q8HR #90 capsule 01/15/20 Unknown Rx amLODIPine 10 mg PO DAILY #30 tab 01/15/20 Unknown Rx glipiZIDE [Glucotrol] 5 mg PO BID #30 tablet 01/15/20 Unknown Rx lisinopriL [Zestril TAB] 40 mg PO QDAY #30 tablet 01/15/20 Unknown Rx metFORMIN [Glucophage] 500 mg PO BID #60 tablet 01/15/20 Unknown Rx Allergies Allergy/AdvReac Type Severity Reaction Status Date / Time No Known Allergies Allergy Verified 12/22/18 19:38 Heart Score - HEART Score History: Moderately suspicious EKG: Normal Age: 45-65 Risk factors: > 3 risk factors or hx of atherosclerotic disease Troponin: < normal limit HEART Score: 4 - EKG Read Time Time EKG Completed: 11:09 EKG Read Time: 11:16 ED Review of Systems ROS: Stated complaint: CHEST PAIN Other details as noted in HPI Comment: All other systems reviewed and negative Constitutional: denies: chills, fever Respiratory: denies: cough, shortness of breath Cardiovascular: chest pain Gastrointestinal: denies: nausea, vomiting Neurological: denies: headache ED Past Medical Hx - Past Medical History Hx Hypertension: Yes Hx CVA: Yes (TIA) Hx Diabetes: Yes Additional medical history: SOB, chest pain - Surgical History Additional Surgical History: left foot - Social History Smoking Status: Current Every Day Smoker - Medications Home Medications: Home Medications Medication Instructions Recorded Confirmed Last Taken Type Ibuprofen [Motrin 800 MG tab] 800 mg PO Q8HR PRN #30 tablet 12/23/18 Unknown Rx Pen Needle, Diabetic [Insulin Pen 1 each MC TID #90 dis.needle 12/23/18 Unknown Rx Needle] predniSONE [Deltasone] 40 mg PO QDAY 5 Days #10 tab 12/23/18 Unknown Rx Aspirin EC [Ecotrin] 81 mg PO QDAY #100 tablet.dr 01/15/20 Unknown Rx AtorvaSTATin [Lipitor] 20 mg PO QHS #30 tab 01/15/20 Unknown Rx Clopidogrel [Plavix] 75 mg PO QDAY #30 tablet 01/15/20 Unknown Rx Gabapentin 100 mg PO Q8HR #90 capsule 01/15/20 Unknown Rx amLODIPine 10 mg PO DAILY #30 tab 01/15/20 Unknown Rx glipiZIDE [Glucotrol] 5 mg PO BID #30 tablet 01/15/20 Unknown Rx lisinopriL [Zestril TAB] 40 mg PO QDAY #30 tablet 01/15/20 Unknown Rx metFORMIN [Glucophage] 500 mg PO BID #60 tablet 01/15/20 Unknown Rx ED Physical Exam - General Limitations: No Limitations General appearance: alert, in no apparent distress, obese - Head Head exam: Present: atraumatic, normocephalic - Eye Eye exam: Present: normal appearance, EOMI - ENT ENT exam: Present: mucous membranes moist - Neck Neck exam: Present: normal inspection - Respiratory Respiratory exam: Present: normal lung sounds bilaterally. Absent: respiratory distress - Cardiovascular Cardiovascular Exam: Present: regular rate, normal rhythm - GI/Abdominal GI/Abdominal exam: Present: soft. Absent: distended, tenderness - Extremities Exam Extremities exam: Present: normal inspection - Neurological Exam Neurological exam: Present: alert, oriented X3, motor sensory deficit (Baseline left-sided deficits secondary to prior CVA). Absent: CN II-XII intact (Slurred speech present) - Psychiatric Psychiatric exam: Present: normal affect, normal mood - Skin Skin exam: Present: warm, dry, intact, normal color ED Course Vital Signs 01/28/21 01/28/21 01/28/21 10:20 11:28 11:30 Temperature 98.1 F Pulse Rate 74 Respiratory 16 Rate Blood Pressure 229/121 Blood Pressure 245/126 [Left] O2 Sat by Pulse 98 100 100 Oximetry 01/28/21 01/28/21 01/28/21 11:45 11:46 12:00 Temperature Pulse Rate 77 88 Respiratory 17 12 Rate Blood Pressure 228/127 215/110 Blood Pressure 228/127 [Left] O2 Sat by Pulse 100 100 Oximetry 01/28/21 01/28/21 01/28/21 12:01 12:15 12:31 Temperature Pulse Rate 67 78 84 Respiratory 17 20 17 Rate Blood Pressure 226/115 212/139 213/108 Blood Pressure [Left] O2 Sat by Pulse 100 99 98 Oximetry 01/28/21 01/28/21 01/28/21 12:45 13:01 13:15 Temperature Pulse Rate 89 79 82 Respiratory 13 11 L 15 Rate Blood Pressure 211/96 207/91 187/101 Blood Pressure [Left] O2 Sat by Pulse 98 100 97 Oximetry 01/28/21 01/28/21 01/28/21 13:31 14:00 17:07 Temperature 98.4 F Pulse Rate 81 79 72 Respiratory 16 22 Rate Blood Pressure 196/97 189/94 Blood Pressure 220/108 [Left] O2 Sat by Pulse 97 99 Oximetry ED Medical Decision Making - Lab Data Result diagrams: 01/28/21 11:17 01/28/21 11:17 - EKG Data -: EKG Interpreted by Me EKG shows normal: sinus rhythm, axis, intervals, QRS complexes, ST-T waves Rate: normal - EKG Data Interpretation: LVH - Radiology Data Radiology results: report reviewed, image reviewed - Medical Decision Making 50-year-old female, history of hypertension, diabetes, CVA, presents to ED with chest pain with exertion. EKG shows no ST changes. Troponin is negative. Patient reports she has been noncompliant with her medications. Blood pressure 245/[address] head negative for any acute findings. Screening midlevel ordered a CT on the patient as patient reported some left-sided weakness and slurred speech to her. However patient reported to me that she has baseline slurred speech and left-sided weakness secondary to prior CVA. Patient has no new neuro deficits. Vital given for BP management. Patient will be admitted to hospitalist, Dr. Grossman, for chest pain, hypertensive emergency. - Differential Diagnosis Hypertensive emergency, ACS, CHF Critical Care Time: Yes Critical care time in (mins) excluding proc time.: 35 Critical care attestation.: If time is entered above; I have spent that time in minutes in the direct care of this critically ill patient, excluding procedure time. Critical Care Time: 35 min ED Disposition Clinical Impression: Acute chest pain, Hypertensive emergency Disposition: ADMITTED INPATIENT Is pt being admited?: Yes Condition: Stable Time of Disposition: 12:56
[2021-01-28] MEDS ORDERED: IBUPROFEN 800 MG TAB PO PRN (15:37)
[2021-01-28] MEDS ORDERED: oxyCODONE /ACETAMINOPHEN 5-325MG TAB PO PRN (15:42)
[2021-01-28] MEDS ORDERED: HYDROmorphone 1 MG/1 ML INJ IV PRN (15:42)
[2021-01-28] MEDS ORDERED: ONDANSETRON 4 MG/2 ML INJ IV PRN (15:42)
[2021-01-28] MEDS ORDERED: METOCLOPRAMIDE 10 MG/2 ML INJ IV PRN (15:42)
[2021-01-28] MEDS ORDERED: ACETAMINOPHEN 325 MG TAB PO PRN (15:42)
[2021-01-28] MEDS: metFORMIN 500 MG TAB PO SCH ×2 (17:06→22:07)
[2021-01-28] MEDS: GABAPENTIN 100 MG CAP PO SCH ×2 (17:07→22:07)
[2021-01-28] MEDS: amLODIPine 10 MG TAB PO SCH (17:07)
[2021-01-28] MEDS: LISINOPRIL 20 MG TAB PO SCH (17:07)
[2021-01-28] MEDS: CLOPIDOGREL 75 MG TAB PO SCH (17:08)
[2021-01-28] MEDS: INSULIN LISPRO 100 UNIT/ML SUB-Q SCH ×2 (17:46→22:26)
[2021-01-28] MEDS: ASPIRIN EC 325 MG TAB PO SCH (20:45)
[2021-01-28] MEDS: glipiZIDE 5 MG TAB PO SCH ×2 (20:46→22:06)
[2021-01-28] MEDS: FAMOTIDINE 20 MG TAB PO SCH (22:06)
[2021-01-28] MEDS: HEPARIN 5,000 UNIT/1 ML VIAL SUB-Q SCH (22:07)
--- NOTE | 2021-01-29 00:23 | History and Physical Report ---
History of Present Illness Date of examination: 01/28/21 Date of admission: 01/28/21 15:42 Chief complaint: Chest pain for 2 days History of present illness: 50-year-old -[place] female with history of hypertension, type 2 diabetes and hyperlipidemia comes in for chest pain of 2 days duration. Chest pain is about 10 on a scale of 1-10. Chest pain is intermittent and retrosternal. Sharp in nature. Nonradiating. No diaphoresis no shortness of breath. No nausea or vomiting. No radiation. Patient has not been taking her medications for a prolonged period of time. Not taking for several months. No headache or dizziness. No neurologic deficits. Patient states he had a cerebrovascular accident 4 months ago which resulted in slurred speech and left- sided weakness from which he recovered nearly completely. No exacerbating or relieving factors for the chest pain. No fever or chills. No exposure to Covid virus. Patient is vaccinated. Heart Score - HEART Score History: Moderately suspicious EKG: Normal Age: 45-65 Risk factors: > 3 risk factors or hx of atherosclerotic disease Troponin: < normal limit HEART Score: 4 - Past Medical History --Hypertension --CVA(TIA) --Diabetes --HLD Additional medical history: SOB, chest pain - Surgical History Additional Surgical History: left foot - Social History Smoking Status: Current Every Day Smoker -Family history --HTN Review of Systems ROS: Constitutional no weight loss or weight gain no fever or chills HEENT no sore throat no post nasal drip no diplopia Neck no neck stiffness no lymph gland enlargement Chest and lungs no shortness of breath cough or wheezing CVS retrosternal chest pain for 2 days GI no nausea no vomiting no diarrhea Genitourinary system no dysuria no flank pain Musculoskeletal system no muscle pains no joint pains CARE SPECIALIST no syncope no seizures Skin no rash no itching Psychiatric no depression no homicidal or suicidal tendencies Hematologic no lymphedema or bruising Endocrine no polydipsia no polyuria no cold intolerance no heat intolerance Medications and Allergies Allergies Allergy/AdvReac Type Severity Reaction Status Date / Time No Known Allergies Allergy Verified 12/22/18 19:38 Home Medications Medication Instructions Recorded Confirmed Last Taken Type Ibuprofen [Motrin 800 MG tab] 800 mg PO Q8HR PRN #30 tablet 12/23/18 Unknown Rx Pen Needle, Diabetic [Insulin Pen 1 each MC TID #90 dis.needle 12/23/18 Unknown Rx Needle] predniSONE [Deltasone] 40 mg PO QDAY 5 Days #10 tab 12/23/18 Unknown Rx Aspirin EC [Ecotrin] 81 mg PO QDAY #100 tablet.dr 01/15/20 Unknown Rx AtorvaSTATin [Lipitor] 20 mg PO QHS #30 tab 01/15/20 Unknown Rx Clopidogrel [Plavix] 75 mg PO QDAY #30 tablet 01/15/20 Unknown Rx Gabapentin 100 mg PO Q8HR #90 capsule 01/15/20 Unknown Rx amLODIPine 10 mg PO DAILY #30 tab 01/15/20 Unknown Rx glipiZIDE [Glucotrol] 5 mg PO BID #30 tablet 01/15/20 Unknown Rx lisinopriL [Zestril TAB] 40 mg PO QDAY #30 tablet 01/15/20 Unknown Rx metFORMIN [Glucophage] 500 mg PO BID #60 tablet 01/15/20 Unknown Rx Active Meds: Active Medications Acetaminophen (Acetaminophen 325 Mg Tab) 650 mg PO Q4H PRN PRN Reason: Pain MILD(1-3)/Fever >100.5/BLAS Amlodipine Besylate (Amlodipine 10 Mg Tab) 10 mg PO DAILY [facility] Last Admin: 01/28/21 17:07 Dose: 10 mg Documented by: Aspirin (Aspirin Ec 325 Mg Tab) 81 mg PO QDAY [facility] Last Admin: 01/28/21 20:45 Dose: Not Given Documented by: Atorvastatin Calcium (Atorvastatin 20 Mg Tab) 20 mg PO QHS [facility] Last Admin: 01/28/21 22:06 Dose: 20 mg Documented by: Clopidogrel Bisulfate (Clopidogrel 75 Mg Tab) 75 mg PO QDAY [facility] Last Admin: 01/28/21 17:08 Dose: 75 mg Documented by: Famotidine (Famotidine 20 Mg Tab) 20 mg PO BID [facility] Last Admin: 01/28/21 22:06 Dose: 20 mg Documented by: Gabapentin (Gabapentin 100 Mg Cap) 100 mg PO Q8HR [facility] Last Admin: 01/28/21 22:07 Dose: Not Given Documented by: Glipizide (Glipizide 5 Mg Tab) 5 mg PO BID [facility] Last Admin: 01/28/21 22:06 Dose: 5 mg Documented by: Heparin Sodium (Porcine) (Heparin 5,000 Unit/1 Ml Vial) 5,000 unit SUB-Q Q12HR [facility] Last Admin: 01/28/21 22:07 Dose: 5,000 unit Documented by: Hydromorphone HCl (Hydromorphone 1 Mg/1 Ml Inj) 0.5 mg IV Q3H PRN PRN Reason: Pain , Severe (7-10) Ibuprofen (Ibuprofen 800 Mg Tab) 800 mg PO Q8HR PRN PRN Reason: Pain , Severe (7-10) Insulin Human Lispro (Insulin Lispro 100 Unit/Ml) 0 unit SUB-Q ACHS [facility]; Protocol Last Admin: 01/28/21 22:26 Dose: 3 unit Documented by: Lisinopril (Lisinopril 20 Mg Tab) 40 mg PO QDAY [facility] Last Admin: 01/28/21 17:07 Dose: 40 mg Documented by: Metformin HCl (Metformin 500 Mg Tab) 500 mg PO BID [facility] Last Admin: 01/28/21 22:07 Dose: Not Given Documented by: Metoclopramide HCl (Metoclopramide 10 Mg/2 Ml Inj) 10 mg IV Q6H PRN PRN Reason: Nausea And Vomiting Ondansetron HCl (Ondansetron 4 Mg/2 Ml Inj) 4 mg IV Q8H PRN PRN Reason: Nausea And Vomiting Oxycodone/Acetaminophen (Oxycodone /Acetaminophen 5-325mg Tab) 1 tab PO Q6H PRN PRN Reason: Pain, Moderate (4-6) Sodium Chloride (Sodium Chloride 0.9% 10 Ml Flush Syringe) 10 ml IV BID [facility] Last Admin: 01/28/21 22:07 Dose: 10 ml Documented by: Sodium Chloride (Sodium Chloride 0.9% 10 Ml Flush Syringe) 10 ml IV PRN PRN PRN Reason: LINE FLUSH Exam - Constitutional Vitals: Temp Pulse Resp BP Pulse Ox 98.1 F 69 18 177/94 95 01/28/21 22:07 01/28/21 22:07 01/28/21 22:07 01/28/21 22:07 01/28/21 22:58 General appearance: Present: no acute distress, well-nourished - EENT Eyes: Present: PERRL ENT: hearing intact, clear oral mucosa - Neck Neck: Present: supple, normal ROM - Respiratory Respiratory effort: normal Respiratory: bilateral: CTA - Cardiovascular Heart rate: 70 Rhythm: regular Heart Sounds: Present: S1 & S2. Absent: rub, click - Extremities Extremities: no ischemia, pulses intact, pulses symmetrical, No edema Peripheral Pulses: within normal limits - Abdominal General gastrointestinal: Present: soft, non-tender, non-distended, normal bowel sounds Female genitourinary: Present: normal - Integumentary Integumentary: Present: clear, warm, dry - Musculoskeletal Musculoskeletal: gait normal, strength equal bilaterally - Psychiatric Psychiatric: appropriate mood/affect, intact judgment & insight - Neurologic Neurologic: CNII-XII intact, moves all extremities - Allied Health Allied health notes reviewed: nursing, case management HEART Score - HEART Score EKG: Normal Age: 45-65 Risk factors: > 3 risk factors or hx of atherosclerotic disease Troponin: Troponin T < 0.010 ng/mL (0.00-0.029) 01/28/21 13:48 Troponin: < normal limit Results - Labs CBC & Chem 7: 01/28/21 11:17 01/28/21 11:17 Labs: Laboratory Last Values WBC 7.7 K/mm3 (4.5-11.0) 01/28/21 11:17 RBC 4.39 M/mm3 (3.65-5.03) 01/28/21 11:17 Hgb 14.3 gm/dl (10.1-14.3) 01/28/21 11:17 Hct 42.3 % (30.3-42.9) 01/28/21 11:17 MCV 96 fl (79-97) 01/28/21 11:17 MCH 33 pg (28-32) H 01/28/21 11:17 MCHC 34 % (30-34) 01/28/21 11:17 RDW 13.7 % (13.2-15.2) 01/28/21 11:17 Plt Count 270 K/mm3 (140-440) 01/28/21 11:17 Lymph % (Auto) 42.1 % (13.4-35.0) H 01/28/21 11:17 [place] % (Auto) 9.7 % (0.0-7.3) H 01/28/21 11:17 Eos % (Auto) 3.3 % (0.0-4.3) 01/28/21 11:17 Baso % (Auto) 1.7 % (0.0-1.8) 01/28/21 11:17 Lymph # (Auto) 3.2 K/mm3 (1.2-5.4) 01/28/21 11:17 [place] # (Auto) 0.7 K/mm3 (0.0-0.8) 01/28/21 11:17 Eos # (Auto) 0.3 K/mm3 (0.0-0.4) 01/28/21 11:17 Baso # (Auto) 0.1 K/mm3 (0.0-0.1) 01/28/21 11:17 Seg Neutrophils % 43.2 % (40.0-70.0) 01/28/21 11:17 Seg Neutrophils # 3.3 K/mm3 (1.8-7.7) 01/28/21 11:17 PT 13.4 Sec. (12.2-14.9) 01/28/21 11:17 INR 0.97 (0.87-1.13) 01/28/21 11:17 APTT 24.8 Sec. (24.2-36.6) 01/28/21 11:17 Sodium 137 mmol/L (137-145) 01/28/21 11:17 Potassium 4.1 mmol/L (3.6-5.0) 01/28/21 11:17 Chloride 100.9 mmol/L (98-107) 01/28/21 11:17 Carbon Dioxide 22 mmol/L (22-30) 01/28/21 11:17 Anion Gap 18 mmol/L 01/28/21 11:17 BUN 17 mg/dL (7-17) 01/28/21 11:17 Creatinine 1.0 mg/dL (0.6-1.2) 01/28/21 11:17 Estimated GFR > 60 ml/min 01/28/21 11:17 BUN/Creatinine Ratio 17 % 01/28/21 11:17 Glucose 254 mg/dL (65-100) H 01/28/21 11:17 POC Glucose 225 mg/dL (70-105) H 01/28/21 22:23 Calcium 10.0 mg/dL (8.4-10.2) 01/28/21 11:17 Magnesium 2.10 mg/dL (1.7-2.3) 01/28/21 11:17 Total Bilirubin 0.30 mg/dL (0.1-1.2) 01/28/21 11:17 AST 20 units/L (5-40) 01/28/21 11:17 ALT 21 units/L (7-56) 01/28/21 11:17 Alkaline Phosphatase 70 units/L (35-129) 01/28/21 11:17 Troponin T < 0.010 ng/mL (0.00-0.029) 01/28/21 13:48 Total Protein 7.7 g/dL (6.3-8.2) 01/28/21 11:17 Albumin 4.0 g/dL (3.9-5) 01/28/21 11:17 Albumin/Globulin Ratio 1.1 % 01/28/21 11:17 HCG, Qual Negative (Negative) 01/28/21 11:17 Short CBC 01/28/21 Range/Units 11:17 WBC 7.7 (4.5-11.0) K/mm3 Hgb 14.3 (10.1-14.3) gm/dl Hct 42.3 (30.3-42.9) % Plt Count 270 (140-440) K/mm3 BMP 01/28/21 11:17 Sodium 137 Potassium 4.1 Chloride 100.9 Carbon Dioxide 22 BUN 17 Creatinine 1.0 Glucose 254 H Calcium 10.0 Cardiac Enzymes 01/28/21 01/28/21 Range/Units 11:17 13:48 Troponin T < 0.010 < 0.010 (0.00-0.029) ng/mL Liver Function 01/28/21 Range/Units 11:17 Total Bilirubin 0.30 (0.1-1.2) mg/dL AST 20 (5-40) units/L ALT 21 (7-56) units/L Alkaline Phosphatase 70 (35-129) units/L Albumin 4.0 (3.9-5) g/dL - Imaging and Cardiology EKG: report reviewed (Sinus rhythm, no acute ST-T wave changes, heart rate of 70., Left ventricular enlargement present.) CT Scan - head: report reviewed Imaging and Cardiology: Chest x-ray No acute findings Head CT No acute findings significant interval change compared with prior head CT of 01/15/2020 Dillon/IV: Voiding Method Toilet Assessment and Plan Advance Directives: Yes (Full code) VTE prophylaxis?: Chemical Plan of care discussed with patient/family: Yes - Patient Problems (1) Acute coronary syndrome Current Visit: Yes Status: Acute Plan to address problem: Serial troponins and CK-MB Lexiscan in a.m. Differential diagnosis of GERD and costochondritis No chest wall tenderness (2) Hypertensive emergency Current Visit: Yes Status: Acute Plan to address problem: Continue lisinopril and carvedilol. Add hydralazine 50 mg every 8 hours. IV hydralazine 10 mg every 3 as needed as necessary for blood pressure more than 160/100 (3) T2DM (type 2 diabetes mellitus) Current Visit: Yes Status: Chronic Qualifiers: Diabetes mellitus intermediate insulin use: without intermediate use Plan to address problem: Continue oral hypoglycemics and coverage. Check hemoglobin A1c. (4) Hyperlipidemia Current Visit: Yes Status: Chronic Qualifiers: Hyperlipidemia type: mixed hyperlipidemia Qualified Code(s): E78.2 - Mixed hyperlipidemia Plan to address problem: Continue statins. (5) Nicotine dependence Current Visit: Yes Status: Chronic Qualifiers: Nicotine product type: cigarettes Plan to address problem: Patient smokes half a pack a day. Patient counseled about stopping smoking for 4 minutes. NicoDerm patch initiated. (6) DVT prophylaxis Current Visit: Yes Status: Acute Plan to address problem: Patient on heparin and GI prophylaxis.
[2021-01-29] MEDS ORDERED: hydrALAZINE 20 MG/1 ML INJ IV PRN (00:36)
[2021-01-29 02:10] LABS: Creatine Kinase MB 2.3 ng/mL (0.0-4.0)
[2021-01-29] MEDS: GABAPENTIN 100 MG CAP PO SCH ×3 (05:33→21:56)
[2021-01-29 06:15] LABS: Basophils % (Auto) 0.5 % (0.0-1.8); Eosinophils # (Auto) 0.2 K/mm3 (0.0-0.4); Eosinophils % (Auto) 3.8 % (0.0-4.3); Hemoglobin 14.1 gm/dl (10.1-14.3); Lymphocytes # (Auto) 2.9 K/mm3 (1.2-5.4); Lymphocytes % (Auto) 50.1 % (13.4-35.0); Mean Corpuscular HGB Conc 34 % (30-34); Mean Corpuscular Volume 98 fl (79-97); Monocytes # (Auto) 0.5 K/mm3 (0.0-0.8); Monocytes % (Auto) 9.4 % (0.0-7.3); Platelet Count 258 K/mm3 (140-440); Red Blood Count 4.29 M/mm3 (3.65-5.03); Red Cell Distribution Width 13.6 % (13.2-15.2)
[2021-01-29 06:35] LABS: Alanine Aminotransferase 20 units/L (7-56); Albumin 3.9 g/dL (3.9-5); BUN/Creatinine Ratio 14; Blood Urea Nitrogen 14 mg/dL (7-17); Calcium 9.6 mg/dL (8.4-10.2); Hemolysis Index 5
[2021-01-29] MEDS ORDERED: REGADENOSON 0.4 MG/5 ML INJ IV ONE (06:59)
[2021-01-29] MEDS: hydrALAZINE 25 MG TAB PO SCH ×3 (09:00→18:10)
[2021-01-29] MEDS ORDERED: INSULIN GLARGINE 100 UNITS/ML SUB-Q NR (09:30)
--- NOTE | 2021-01-29 11:07 | Electrocardiograph Report ---
[facility] Test Date: 2021-01-28 Test Time: 11:09:41 Pat Name: KD PALMER Department: Room: A459 Gender: F Tail Edger: SHABANA : 1970 Requested By: ROSEMARY LANGFORD Order Number: [id number] Reading MD: Judson Orr Measurements Intervals [place] Rate: 71 P: 49 [place]: 176 QRS: 25 QRSD: 77 T: 39 QT: 433 QTc: 471 Interpretive Statements Sinus rhythm Probable left atrial enlargement Left ventricular hypertrophy No previous ECG available for comparison Electronically Signed On 01-29-2021 11:07:14 EDT by Judson Orr
[2021-01-29] MEDS: CLOPIDOGREL 75 MG TAB PO SCH (11:55)
[2021-01-29] MEDS: amLODIPine 10 MG TAB PO SCH (11:56)
[2021-01-29] MEDS: metFORMIN 500 MG TAB PO SCH ×2 (11:56→21:56)
[2021-01-29] MEDS: LISINOPRIL 20 MG TAB PO SCH (11:56)
[2021-01-29] MEDS: FAMOTIDINE 20 MG TAB PO SCH ×2 (11:56→21:56)
[2021-01-29] MEDS: glipiZIDE 5 MG TAB PO SCH ×2 (11:57→21:56)
[2021-01-29] MEDS: carvediloL 6.25 MG TAB PO SCH ×2 (11:57→21:56)
[2021-01-29] MEDS: HEPARIN 5,000 UNIT/1 ML VIAL SUB-Q SCH ×2 (11:57→21:56)
[2021-01-29] MEDS: INSULIN LISPRO 100 UNIT/ML SUB-Q SCH ×4 (12:00→22:00)
[2021-01-29] MEDS: ASPIRIN EC 325 MG TAB PO SCH (14:33)
[2021-01-29 18:48] LABS: C-Reactive Protein 0.3 mg/dL (0.00-1.30); Uric Acid 5.7 mg/dL (3.5-7.6)
--- NOTE | 2021-01-29 19:23 | Progress Note ---
Assessment and Plan Assessment and plan: 50-year-old -[place]iqu[place] female with history of morbid obesity, hypertension, type 2 diabetes, CVA/TIA, left shoulder and both ankles swelling with pain but no history of gout and hyperlipidemia comes in for intermittent atypical chest pain lasting for about a minute of 2 days duration. She ran of her meds about 4 months ago did not feel as she has no health insurance. Patient noted to have malignant hypertension as above hyperglycemia in ED. Chest pain is about 10 on a scale of 1-10. Chest pain is intermittent and retrosternal. Sharp in nature. Nonradiating. No diaphoresis no shortness of breath. No nausea or vomiting. No radiation. Patient has not been taking her medications for a prolonged period of time. Not taking for several months. No headache or dizziness. No neurologic deficits. Patient states he had a cerebrovascular accident 4 months ago which resulted in slurred speech and left- sided weakness from which he recovered nearly completely. No exacerbating or relieving factors for the chest pain. No fever or chills. No exposure to Covid virus. Patient is vaccinated. Assessment and Plan - Patient Problems (1) atypical chest pains lasting a minute Current Visit: Yes Status: Acute Plan to address problem: Serial troponins and CK-MB Lexiscan i today, report is pending Differential diagnosis of GERD and costochondritis No chest wall tenderness (2) Hypertensive emergency due to noncompliance Current Visit: Yes Status: Acute Plan to address problem: Medical therapy initiated with lisinopril and carvedilol. Add hydralazine 50 mg every 8 hours. IV hydralazine 10 mg every 3 as needed as necessary for blood pressure more than 160/100 (3) T2DM (type 2 diabetes mellitus), hemoglobin A1c 11, noncompliance Current Visit: Yes Status: Chronic Qualifiers: Diabetes mellitus domestic maid insulin use: without domestic maid use Plan to address problem: Continue oral hypoglycemics and coverage. Placed on the Metformin and glipizide. Given a single dose of Lantus 20 units today. Glycemic control improved. (4) Hyperlipidemia Current Visit: Yes Status: Chronic Qualifiers: Hyperlipidemia type: mixed hyperlipidemia Qualified Code(s): E78.2 - Mixed hyperlipidemia Plan to address problem: Continue statins. (5) Nicotine dependence Current Visit: Yes Status: Chronic Qualifiers: Nicotine product type: cigarettes Plan to address problem: Patient smokes half a pack a day. Patient counseled about stopping smoking for 4 minutes. NicoDerm patch initiated. (6) DVT prophylaxis Current Visit: Yes Status: Acute Plan to address problem: Patient on heparin and GI prophylaxis. (7) bilateral painful swelling of ankles Etiology is unclear. No history of gout. Uric acid level normal. CRP normal. Discharge disposition: Patient will be discharged once her DEXA scan report results are normal. Patient is unable to fill her prescriptions due to lack of health insurance. Case management consulted. History Interval history: Patient reports intermittent chest pains lasting for 1 minute also since 2 days. Currently has no chest pains. She has a malignant hypertension and diabetes control is being optimized. She reports left shoulder and both ankle pain and swelling since several weeks. No history of gout. She has no health insurance and ran out of on her meds about 3 months ago also. She underwent nuclear stress test today and the report is pending. Patient denies palpitations are dyspnea. No fever or chills. Blood glucose elevated and control is being optimized. Hemoglobin A1c 11. Hospitalist Physical - Constitutional Vitals: Temp Pulse Resp BP Pulse Ox 98.0 F 75 18 177/133 100 01/29/21 07:49 01/29/21 07:49 01/29/21 07:49 01/29/21 09:37 01/29/21 10:00 General appearance: Present: no acute distress, well-nourished, other (Severely obese) - EENT Eyes: Present: PERRL ENT: hearing intact - Neck Neck: Present: supple - Respiratory Respiratory effort: normal - Cardiovascular Rhythm: regular - Extremities Extremities: No edema - Abdominal General gastrointestinal: soft - Integumentary Integumentary: Present: warm - Psychiatric Psychiatric: appropriate mood/affect - Neurologic Neurologic: no focal deficits, moves all extremities - Additional findings Additional findings: Musculoskeletal: Left shoulder: Some tenderness. Both ankles moderately swollen and tender but not significantly warm. No erythema. HEART Score - HEART Score EKG: Normal Age: 45-65 Risk factors: > 3 risk factors or hx of atherosclerotic disease Troponin: Troponin T < 0.010 ng/mL (0.00-0.029) 01/29/21 01:28 Troponin: < normal limit Results - Labs CBC & Chem 7: 01/29/21 05:46 01/29/21 05:46 Labs: Laboratory Last Values WBC 5.9 K/mm3 (4.5-11.0) 01/29/21 05:46 RBC 4.29 M/mm3 (3.65-5.03) 01/29/21 05:46 Hgb 14.1 gm/dl (10.1-14.3) 01/29/21 05:46 Hct 42.0 % (30.3-42.9) 01/29/21 05:46 MCV 98 fl (79-97) H 01/29/21 05:46 MCH 33 pg (28-32) H 01/29/21 05:46 MCHC 34 % (30-34) 01/29/21 05:46 RDW 13.6 % (13.2-15.2) 01/29/21 05:46 Plt Count 258 K/mm3 (140-440) 01/29/21 05:46 Lymph % (Auto) 50.1 % (13.4-35.0) H 01/29/21 05:46 [place] % (Auto) 9.4 % (0.0-7.3) H 01/29/21 05:46 Eos % (Auto) 3.8 % (0.0-4.3) 01/29/21 05:46 Baso % (Auto) 0.5 % (0.0-1.8) 01/29/21 05:46 Lymph # (Auto) 2.9 K/mm3 (1.2-5.4) 01/29/21 05:46 [place] # (Auto) 0.5 K/mm3 (0.0-0.8) 01/29/21 05:46 Eos # (Auto) 0.2 K/mm3 (0.0-0.4) 01/29/21 05:46 Baso # (Auto) 0.0 K/mm3 (0.0-0.1) 01/29/21 05:46 Seg Neutrophils % 36.2 % (40.0-70.0) L 01/29/21 05:46 Seg Neutrophils # 2.1 K/mm3 (1.8-7.7) 01/29/21 05:46 PT 13.4 Sec. (12.2-14.9) 01/28/21 11:17 INR 0.97 (0.87-1.13) 01/28/21 11:17 APTT 24.8 Sec. (24.2-36.6) 01/28/21 11:17 Sodium 139 mmol/L (137-145) 01/29/21 05:46 Potassium 4.0 mmol/L (3.6-5.0) 01/29/21 05:46 Chloride 103.8 mmol/L (98-107) 01/29/21 05:46 Carbon Dioxide 22 mmol/L (22-30) 01/29/21 05:46 Anion Gap 17 mmol/L 01/29/21 05:46 BUN 14 mg/dL (7-17) 01/29/21 05:46 Creatinine 1.0 mg/dL (0.6-1.2) 01/29/21 05:46 Estimated GFR > 60 ml/min 01/29/21 05:46 BUN/Creatinine Ratio 14 % 01/29/21 05:46 Glucose 268 mg/dL (65-100) H 01/29/21 05:46 POC Glucose 152 mg/dL (70-105) H 01/29/21 16:05 Hemoglobin A1c 11.0 % (4-6) H 01/29/21 Unknown Uric Acid 5.7 mg/dL (3.5-7.6) 01/29/21 05:46 Calcium 9.6 mg/dL (8.4-10.2) 01/29/21 05:46 Magnesium 2.10 mg/dL (1.7-2.3) 01/28/21 11:17 Total Bilirubin < 0.20 mg/dL (0.1-1.2) 01/29/21 05:46 AST 15 units/L (5-40) 01/29/21 05:46 ALT 20 units/L (7-56) 01/29/21 05:46 Alkaline Phosphatase 80 units/L (35-129) 01/29/21 05:46 Total Creatine Kinase 81 units/L (30-135) 01/29/21 01:28 CK-MB (CK-2) 2.3 ng/mL (0.0-4.0) 01/29/21 01:28 CK-MB (CK-2) Rel Index 2.8 (0-4) 01/29/21 01:28 Troponin T < 0.010 ng/mL (0.00-0.029) 01/29/21 01:28 C-Reactive Protein 0.30 mg/dL (0.00-1.30) 01/29/21 05:46 Total Protein 7.4 g/dL (6.3-8.2) 01/29/21 05:46 Albumin 3.9 g/dL (3.9-5) 01/29/21 05:46 Albumin/Globulin Ratio 1.1 % 01/29/21 05:46 HCG, Qual Negative (Negative) 01/28/21 11:17 [place]/IV: Voiding Method Toilet Active Medications - Current Medications Current Medications: Generic Name Dose Route Start Last Admin Trade Name Freq PRN Reason Stop Dose Admin Acetaminophen 650 mg 01/28/21 15:42 Acetaminophen 325 Mg Tab PO Q4H PRN Pain MILD(1-3)/Fever >100.5/BLAS Amlodipine Besylate 10 mg 01/28/21 16:00 01/29/21 11:56 Amlodipine 10 Mg Tab PO 10 mg DAILY TERESE Administration Aspirin 325 mg 01/30/21 16:00 Aspirin 325 Mg Tab PO QDAY TERESE Atorvastatin Calcium 20 mg 01/28/21 22:00 01/28/21 22:06 Atorvastatin 20 Mg Tab PO 20 mg QHS TERESE Administration Carvedilol 6.25 mg 01/29/21 10:00 01/29/21 11:57 Carvedilol 6.25 Mg Tab PO 6.25 mg BID TERESE Administration Clopidogrel Bisulfate 75 mg 01/28/21 16:00 01/29/21 11:55 Clopidogrel 75 Mg Tab PO 75 mg QDAY TERESE Administration Famotidine 20 mg 01/28/21 22:00 01/29/21 11:56 Famotidine 20 Mg Tab PO 20 mg BID TERESE Administration Gabapentin 100 mg 01/28/21 16:00 01/29/21 14:38 Gabapentin 100 Mg Cap PO 100 mg Q8HR TERESE Administration Glipizide 5 mg 01/28/21 16:00 01/29/21 11:57 Glipizide 5 Mg Tab PO 5 mg BID TERESE Administration Heparin Sodium (Porcine) 5,000 unit 01/28/21 22:00 01/29/21 11:57 Heparin 5,000 Unit/1 Ml Vial SUB-Q 5,000 unit Q12HR TERESE Administration Hydralazine HCl 50 mg 01/29/21 01:00 01/29/21 18:10 Hydralazine 25 Mg Tab PO 50 mg Q8H TERESE Administration Hydralazine HCl 10 mg 01/29/21 00:36 Hydralazine 20 Mg/1 Ml Inj IV Q3H PRN Blood Pressure Ibuprofen 800 mg 01/28/21 15:37 Ibuprofen 800 Mg Tab PO Q8HR PRN Pain , Severe (7-10) Insulin Human Lispro 0 unit 01/28/21 16:30 01/29/21 18:10 Insulin Lispro 100 Unit/Ml SUB-Q 2 unit ACHS TERESE Administration Protocol Lisinopril 40 mg 01/28/21 16:00 01/29/21 11:56 Lisinopril 20 Mg Tab PO 40 mg QDAY TERESE Administration Metformin HCl 500 mg 01/28/21 16:00 01/29/21 11:56 Metformin 500 Mg Tab PO 500 mg BID TERESE Administration Metoclopramide HCl 10 mg 01/28/21 15:42 Metoclopramide 10 Mg/2 Ml Inj IV Q6H PRN Nausea And Vomiting Ondansetron HCl 4 mg 01/28/21 15:42 Ondansetron 4 Mg/2 Ml Inj IV Q8H PRN Nausea And Vomiting Oxycodone/Acetaminophen 1 tab 01/28/21 15:42 01/29/21 12:43 Oxycodone /Acetaminophen 5-325mg Tab PO 1 tab Q6H PRN Administration Pain, Moderate (4-6) Sodium Chloride 10 ml 01/28/21 22:00 01/29/21 11:58 Sodium Chloride 0.9% 10 Ml Flush Syringe IV 10 ml BID TERESE Administration Sodium Chloride 10 ml 01/28/21 15:42 Sodium Chloride 0.9% 10 Ml Flush Syringe IV PRN PRN LINE FLUSH
[2021-01-30] MEDS: hydrALAZINE 25 MG TAB PO SCH ×2 (00:43→10:24)
[2021-01-30] MEDS: GABAPENTIN 100 MG CAP PO SCH (05:09)
[2021-01-30] MEDS: INSULIN LISPRO 100 UNIT/ML SUB-Q SCH (08:00)
[2021-01-30 08:02] VITALS: BP 161/93
--- NOTE | 2021-01-30 08:13 | Nuclear Medicine Report ---
APPROVED REPORT Exam: Nuclear Stress Test Indication: Chest pain Patient Location: [address] [place] [address] Room #: 459 Ht: 5 ft 9 in Wt: 241 lbs BSA: 2.24 m2 HR: 63 bpmBP: 221/126 mmHgBMI: 35.58 Stress Test Details Stress Test: Pharmacologic stress testing performed using 0.4 mg of regadenoson per 5 mL given IV over 10 seconds. Reason for pharmacologic stress test: physical limitation. HR Resting HR: 63 bpm Max HR Achieved: 93 bpm Max Heart Rate (APMHR): 171.944933 bpm Target HR (85% APMHR): 145.894644 bpm % of APMHR: 54.39 Recovery HR: 87 bpm BP Resting BP: 221/126 mmHg Max BP: 221/126 mmHg Recovery BP: 174/144 mmHg ECG Resting ECG: Sinus Rhythm Clinical Reason for Termination: Completed protocol Stress Symptoms: None NM EXAM: Myocardial Perfusion REST/STRESS Imaging Protocol: Rest Tc-99m/Stress Tc-99m 1 day Resting Data Rest SPECT myocardial perfusion imaging was performed in supine position 45 minutes following the intravenous injection of 10 mCi of Tc-99m Myoview. Time of rest injection: 0700 Pharmacologic Stress Pharmacologic stress test was performed by injecting Regadenoson 0.4 mg IV push followed by the intravenous injection of 28 mCi of Tc-99m Myoview. Time of stress injection: 0931 Gated Stress SPECT was performed 30 minutes after stress injection. The images were gated to evaluate regional wall motion and calculate left ventricular ejection fraction. Study Quality Study: excellent Lung Uptake: Normal Study Data TID = 1.12. Perfusion Wall Motion The rest and stress images show normal left ventricular wall motion. Nuclear Conclusion ECG Findings: negative for ischemia Clinical Findings: negative for ischemia Nuclear Findings: negative for ischemia Exercise Capacity: not assessed Left Ventricular Function: normal Normal study. No scintigraphic evidence for myocardial ischemia or scar. Normal left ventricular size and function with no regional wall motion abnormalities.
--- NOTE | 2021-01-30 09:40 | Discharge Summary ---
Providers - Providers Date of Admission: 01/28/21 15:42 Attending physician: RICHELLE SNIDER MD 01/29/21 17:29 Consult to Case Management [CONS] Routine Services Needed at Discharge: Other Notified:: CASE MANAGEMENT Comment:: Discharge planning Additional Physician Instructions: Patient has no health insurance and was not able to take her meds for 3 months Primary care physician: [employer] Hospitalization Reason for admission: Chest pain Condition: Stable Hospital course: 50-year-old -[place] female with history of morbid obesity, hypertension, type 2 diabetes, CVA/TIA, left shoulder and both ankles swelling with pain but no history of gout and hyperlipidemia comes in for intermittent atypical chest pain lasting for about a minute of 2 days duration. She ran of her meds about 4 months ago did not feel as she has no health insurance. Patient noted to have malignant hypertension as above hyperglycemia in ED. Chest pain is about 10 on a scale of 1-10. Chest pain is intermittent and retrosternal. Sharp in nature. Nonradiating. No diaphoresis no shortness of breath. No nausea or vomiting. No radiation. Patient has not been taking her medications for a prolonged period of time. Not taking for several months. No headache or dizziness. No neurologic deficits. Patient states he had a cerebrovascular accident 4 months ago which resulted in slurred speech and left- sided weakness from which he recovered nearly completely. No exacerbating or relieving factors for the chest pain. No fever or chills. No exposure to Covid virus. Patient is vaccinated. (1) Atypical chest pains lasting a minute Current Visit: Yes Status: Acute Plan to address problem: Serial troponins and CK-MB Lexiscan i today, report is pending Differential diagnosis of GERD and costochondritis No chest wall tenderness (2) Hypertensive emergency due to noncompliance Current Visit: Yes Status: Acute Plan to address problem: Medical therapy initiated with lisinopril and carvedilol. Add hydralazine 50 mg every 8 hours. 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 Placed on the Metformin and glipizide. Given a single dose of Lantus 20 units today. Glycemic control improved. (4) Hyperlipidemia Current Visit: Yes Status: Chronic Qualifiers: Hyperlipidemia type: mixed hyperlipidemia Qualified Code(s): E78.2 - Mixed hyperlipidemia Plan to address problem: Continue statins. (5) Nicotine dependence Current Visit: Yes Status: Chronic Qualifiers: Nicotine product type: cigarettes Plan to address problem: Patient smokes half a pack a day. Patient counseled about stopping smoking for 4 minutes. NicoDerm patch initiated. (6) DVT prophylaxis Current Visit: Yes Status: Acute Plan to address problem: Patient on heparin and GI prophylaxis. (7) bilateral painful swelling of ankles Etiology is unclear. No history of gout. Uric acid level normal. CRP normal. Discharge disposition: Patient seen and examined this morning stress test result is negative from yesterday discussed with the patient adjusted blood pressure medication compliance discussed in detail including revisiting all tobacco cessation she verbalized understanding she is stable for discharge Disposition: HOME / SELF CARE / HOMELESS Final Discharge Diagnosis (Prints w/discharge instructions): Atypical chest pain secondary to costochondritis Time spent for discharge: 35 MINS Core Measure Documentation - Palliative Care Palliative Care/ Comfort Measures: Not Applicable - Core Measures Any of the following diagnoses?: none Exam - Physical Exam Narrative exam: VITAL SIGNS: Reviewed. GENERAL: The patient appears normally developed, Vital signs as documented. HEAD: No signs of head trauma. EYES: Pupils are equal. Extraocular motions intact. EARS: Hearing grossly intact. MOUTH: Oropharynx is normal. NECK: No adenopathy, no JVD. CHEST: Chest with clear breath sounds bilaterally. No wheezes, rales, or rhonchi. CARDIAC: Regular rate and rhythm. S1 and S2, without murmurs, gallops, or rubs. VASCULAR: No Edema. Peripheral pulses normal and equal in all extremities. ABDOMEN: Soft, non tender and non distended. No rebound or guarding, and no masses palpated. Bowel Sounds normal. MUSCULOSKELETAL: Good range of motion of all major joints. Extremities without clubbing, cyanosis or edema. NEUROLOGIC EXAM: Alert and oriented x 3 No focal sensory or strength deficits. Speech normal. Follows commands. PSYCHIATRIC: Mood normal. SKIN: detail exam as documented in skin assessment - Constitutional Vitals: Temp Pulse Resp BP Pulse Ox 98.0 F 70 18 161/93 100 01/30/21 07:52 01/30/21 07:52 01/30/21 07:52 01/30/21 07:52 01/30/21 07:52 Plan Activity: advance as tolerated, fall precautions Diet: diabetic Special Instructions: record daily weights, record daily BP diary, record blood sugar diary Follow up with: PRIMARY CARE, [Primary Care Provider] - 3-5 Days Prescriptions: hydrALAZINE [Apresoline TAB] 50 mg PO Q8H #90 tablet carvediloL [Coreg] 6.25 mg PO BID #60 tablet metFORMIN [Glucophage] 500 mg PO BID #60 tablet Insulin NPH Human Isophane [Novolin N] 0 unit SQ ACHS #1 vial Famotidine [Pepcid] 20 mg PO BID #30 tablet Simvastatin 40 mg PO DAILY #30 tablet lisinopriL [Zestril TAB] 40 mg PO QDAY #30 tablet lisinopriL [Zestril TAB] 40 mg PO QDAY #30 tab Other Discharge Orders: Glucometer (Amb) Location: None Selected Glucometer supplies[Amb] Location: None Selected
[2021-01-30] MEDS ORDERED: metFORMIN XR 500MG TAB PO SCH (10:00)
[2021-01-30] MEDS: glipiZIDE 5 MG TAB PO SCH (10:18)
[2021-01-30] MEDS: carvediloL 6.25 MG TAB PO SCH (10:18)
[2021-01-30] MEDS: FAMOTIDINE 20 MG TAB PO SCH (10:18)
[2021-01-30] MEDS: LISINOPRIL 20 MG TAB PO SCH (10:18)
[2021-01-30] MEDS: CLOPIDOGREL 75 MG TAB PO SCH (10:19)
[2021-01-30] MEDS: amLODIPine 10 MG TAB PO SCH (10:19)
[2021-01-30] MEDS: HEPARIN 5,000 UNIT/1 ML VIAL SUB-Q SCH (10:20)
[2021-01-30] MEDS ORDERED: ASPIRIN 325 MG TAB PO SCH (16:00)
== END 2021-01-30 14:32 | disposition home or self-care (01) ==
LOC: ED 10:05 → 4A 12:56 → UNDOADMIN 12:56 → 4A 15:42 → INTOOBSV 15:42 → 4A 18:47
PROVIDERS: ADMIT Internal Medicine; ATTEND Internal Medicine
DX: I16.1 Hypertensive emergency (principal); I24.9 Acute ischemic heart disease, unspecified; E11.9 Type 2 diabetes mellitus without complications; E78.5 Hyperlipidemia, unspecified; F17.210 Nicotine dependence, cigarettes, uncomplicated; R47.81 Slurred speech; M79.89 Other specified soft tissue disorders; Z86.73 Personal history of transient ischemic attack (TIA), and cerebral infarction without residual deficits; Z79.899 Other long term (current) drug therapy; Z98.890 Other specified postprocedural states; Z79.82 Long term (current) use of aspirin; Z79.4 Long term (current) use of insulin; Z91.14 Patient's other noncompliance with medication regimen; Z91.19 Patient's noncompliance with other medical treatment and regimen
CPT/HCPCS: 36415; 70450; 71046; 78452; 80053; 82550; 82553; 82962; 83036; 83735; 84484; 84550; 84703; 85025; 85610; 85730; 86140; 93005; 93017; 96372; 96374; 99291; A9270; A9502; G0378; J1644; J2785; J1815

== ENCOUNTER 2021-08-06 20:17 | Emergency (ER) | payer SELFPAY ==
[2021-08-06 20:42] VITALS: BP 200/115
--- NOTE | 2021-08-07 11:33 | Electrocardiograph Report ---
[facility] Test Date: 2021-08-06 Test Time: 20:32:50 Pat Name: KD PALMER Department: Room: Gender: F Supervisor Tan Room: JAVIER Garcia : 1970 Requested By: ROMANA SPARKS Order Number: [id number] Reading MD: Judson Orr Measurements Intervals [place] Rate: 81 P: 46 MO: 174 QRS: 17 QRSD: 81 T: 97 QT: 402 QTc: 469 Interpretive Statements Sinus rhythm Probable left atrial enlargement Left ventricular hypertrophy Compared to ECG 01/28/2021 11:09:41 No significant changes Electronically Signed On 08-07-2021 11:32:39 EDT by Judson Orr
== END 2021-08-06 22:22 | disposition left against medical advice (07) ==
LOC: ED 20:17
DX: R07.9 Chest pain, unspecified (principal); Z53.21 Procedure and treatment not carried out due to patient leaving prior to being seen by health care provider
CPT/HCPCS: 93005